=== PATIENT | male | born 2000 | race Caucasian/White ===

== ENCOUNTER 2020-02-18 21:32 | Emergency (ER) | payer SELFPAY ==
[2020-02-18] MEDS ORDERED: Ketorolac Tromethamine 30 MG/ML VIAL ONE (21:55)
--- NOTE | 2020-02-18 22:21 | RAD ---
XR Elbow Rt 2 View History: Elbow pain Comparison: None. Findings: No acute fracture. Small ossicle along the proximal ulnar collateral ligament from chronic repetitive microtrauma. No significant joint effusion. Impression: 1. No acute fracture. 2. 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 MRI arthro gram of the elbow may be beneficial if clinically warranted.
== END 2020-02-18 22:20 | disposition home or self-care (01) ==
LOC: ERS 21:32
DX: S56.911A Strain of unspecified muscles, fascia and tendons at forearm level, right arm, initial encounter (principal); F17.210 Nicotine dependence, cigarettes, uncomplicated; Z79.899 Other long term (current) drug therapy; X58.XXXA Exposure to other specified factors, initial encounter; Y93.64 Activity, baseball
CPT/HCPCS: 96372; J1885